=== PATIENT | male | born 1965 | race Caucasian/White ===

== ENCOUNTER → 2022-10-02 | Emergency (ER) | payer MEDICAID, OTHER ==
[~2022-10-02] VITALS: Ht 177.8 cm; Wt 83.6 kg
[2022-10-02 18:00] VITALS: BP 126/77
== END | disposition left against medical advice (07) ==
LOC: ER 17:46
DX: M54.2 Cervicalgia (principal); Z53.21 Procedure and treatment not carried out due to patient leaving prior to being seen by health care provider
CPT/HCPCS: 72040